=== PATIENT | male | born 1955 | race Caucasian/White ===

== ENCOUNTER 2016-04-12 20:07 | Inpatient (IN) | payer MEDICAID ==
[~2016-04-12] VITALS: Ht 172.7 cm; Wt 85.5 kg
[2016-04-12] MEDS ORDERED: ONDANSETRON 4 MG VIAL IV PRN (22:25)
[2016-04-12] MEDS ORDERED: SALINE FLUSH 10 ML FLUSH PRN (22:25)
[2016-04-12 22:42] VITALS: Ht 172.7 cm; Wt 85.5 kg
[2016-04-12] MEDS ORDERED: PHARMACY TO DOSE VANCOMYCIN IV SCH (22:45)
[2016-04-12] MEDS ORDERED: VANCOMYCIN 1,750 MG in SODIUM CHLORIDE 0.9% 500 ML IV ONE (23:00)
[2016-04-12 23:05] VITALS: BP_SYST 142; BP_SYST 150; RESP 22; TEMP 98.1
[2016-04-12] MEDS: METHYLPRED SOD SUCC 125 MG/2 ML VIAL IV SCH (23:42)
[2016-04-12] MEDS: SODIUM CHLORIDE 0.9% FLUSH BAG 500 ML IV SCH (23:46)
[2016-04-13] VITALS (7 sets, daily range): BP systolic 109–132; RESP 18–20; TEMP 97.3–97.8
[2016-04-13] MEDS: DUONEB INH SCH ×5 (00:24→23:30)
[2016-04-13] MEDS: NEB-BROVANA 15 MCG/2 ML INH SCH ×3 (00:24→20:12)
[2016-04-13] MEDS: SALINE FLUSH 10 ML FLUSH SCH ×2 (07:57→19:45)
[2016-04-13] MEDS: CEFEPIME 1,000 MG in SODIUM CHLORIDE 0.9% 100 ML IV SCH ×2 (07:57→19:45)
[2016-04-13] MEDS: METHYLPRED SOD SUCC 125 MG/2 ML VIAL IV SCH (07:58)
[2016-04-13] MEDS: ENOXAPARIN 40 MG/0.4 ML SYR SUBQ SCH (08:01)
[2016-04-13] MEDS: NEB-BUDESONIDE 0.5 MG INH SCH ×2 (11:15→20:12)
[2016-04-13] MEDS ORDERED: [UNRECOGNIZED DRUG - OTHER] PO PRN (11:30)
[2016-04-13] MEDS: NEB-NACL 3% 4 ML NEBU INH SCH ×3 (15:30→23:30)
[2016-04-13] MEDS: PANTOPRAZOLE 20 MG TAB PO SCH (16:25)
[2016-04-13] MEDS: LORATADINE 10 MG TAB PO SCH (16:25)
[2016-04-13] MEDS: AZITHROMYCIN 250 MG TAB PO SCH (16:26)
[2016-04-13] MEDS: SUCRALFATE 1 GM TAB PO SCH (16:26)
[2016-04-13] MEDS: VANCOMYCIN 1,500 MG in SODIUM CHLORIDE 0.9% 250 ML IV SCH (16:27)
[2016-04-13] MEDS: MONTELUKAST 10 MG TAB PO SCH (19:45)
[2016-04-13] MEDS: Atorvastatin 20 MG TAB PO SCH (19:45)
[2016-04-13] MEDS ORDERED: VANCOMYCIN 1,500 MG in SODIUM CHLORIDE 0.9% 250 ML IV SCH (22:00)
[2016-04-14] MEDS: VANCOMYCIN 1,500 MG in SODIUM CHLORIDE 0.9% 250 ML IV SCH ×2 (03:39→16:00)
[2016-04-14] MEDS: SODIUM CHLORIDE 0.9% FLUSH BAG 500 ML IV SCH (03:40)
[2016-04-14 04:20] VITALS: BP_SYST 122; RESP 20; TEMP 97.8
[2016-04-14] MEDS: PANTOPRAZOLE 20 MG TAB PO SCH (05:55)
[2016-04-14] MEDS: NEB-BUDESONIDE 0.5 MG INH SCH ×2 (06:42→18:26)
[2016-04-14] MEDS: NEB-NACL 3% 4 ML NEBU INH SCH ×5 (06:42→22:41)
[2016-04-14] MEDS: NEB-BROVANA 15 MCG/2 ML INH SCH ×2 (06:42→18:26)
[2016-04-14] MEDS: DUONEB INH SCH ×4 (06:42→22:42)
[2016-04-14] MEDS ORDERED: MDI-SPIRIVA 5 DOSES INH SCH (07:00)
[2016-04-14 07:24] VITALS: BP_SYST 115; RESP 20; TEMP 97.5
[2016-04-14] MEDS: CEFEPIME 1,000 MG in SODIUM CHLORIDE 0.9% 100 ML IV SCH ×2 (08:24→20:31)
[2016-04-14] MEDS: SALINE FLUSH 10 ML FLUSH SCH ×2 (08:24→20:31)
[2016-04-14] MEDS: LORATADINE 10 MG TAB PO SCH (08:25)
[2016-04-14] MEDS: ENOXAPARIN 40 MG/0.4 ML SYR SUBQ SCH (08:25)
[2016-04-14] MEDS: AZITHROMYCIN 250 MG TAB PO SCH (08:25)
[2016-04-14] MEDS: PREDNISONE 20 MG TAB PO SCH (08:25)
[2016-04-14] MEDS: SUCRALFATE 1 GM TAB PO SCH (11:33)
[2016-04-14 11:59] VITALS: BP_SYST 126; RESP 20; TEMP 98.3
[2016-04-14 16:05] VITALS: BP_SYST 119; RESP 20; TEMP 98.1
[2016-04-14 19:49] VITALS: BP_SYST 120; RESP 20; TEMP 97.7
[2016-04-14] MEDS: Atorvastatin 20 MG TAB PO SCH (20:31)
[2016-04-14] MEDS: MONTELUKAST 10 MG TAB PO SCH (20:31)
[2016-04-14 23:01] VITALS: BP_SYST 109; RESP 20; TEMP 97.7
[2016-04-15 04:04] VITALS: BP_SYST 104; RESP 20; TEMP 98.3
[2016-04-15] MEDS: VANCOMYCIN 1,500 MG in SODIUM CHLORIDE 0.9% 250 ML IV SCH ×2 (04:44→16:00)
[2016-04-15] MEDS: SODIUM CHLORIDE 0.9% FLUSH BAG 500 ML IV SCH (04:44)
[2016-04-15] MEDS: NEB-NACL 3% 4 ML NEBU INH SCH ×4 (06:26→22:55)
[2016-04-15] MEDS: DUONEB INH SCH ×4 (06:26→22:55)
[2016-04-15] MEDS: NEB-BROVANA 15 MCG/2 ML INH SCH ×2 (06:26→20:16)
[2016-04-15] MEDS: NEB-BUDESONIDE 0.5 MG INH SCH ×2 (06:27→20:16)
[2016-04-15 07:21] VITALS: BP_SYST 117; RESP 20; TEMP 97.8
[2016-04-15] MEDS: PANTOPRAZOLE 20 MG TAB PO SCH (07:36)
[2016-04-15] MEDS: SALINE FLUSH 10 ML FLUSH SCH ×2 (08:00→20:40)
[2016-04-15] MEDS: CEFEPIME 1,000 MG in SODIUM CHLORIDE 0.9% 100 ML IV SCH ×2 (08:04→20:40)
[2016-04-15] MEDS: LORATADINE 10 MG TAB PO SCH (08:05)
[2016-04-15] MEDS: PREDNISONE 20 MG TAB PO SCH (08:05)
[2016-04-15] MEDS: AZITHROMYCIN 250 MG TAB PO SCH (08:05)
[2016-04-15] MEDS: ENOXAPARIN 40 MG/0.4 ML SYR SUBQ SCH (08:06)
[2016-04-15] MEDS ORDERED: KCL 20 MEQ/15 ML UDC PO ONE (09:05)
[2016-04-15] MEDS: SUCRALFATE 1 GM TAB PO SCH (10:54)
[2016-04-15 12:00] VITALS: BP_SYST 130; RESP 20; TEMP 98
[2016-04-15 15:43] VITALS: BP_SYST 113; RESP 20; TEMP 98.3
[2016-04-15] MEDS ORDERED: VANCOMYCIN 1,750 MG in SODIUM CHLORIDE 0.9% 500 ML IV SCH (16:15)
[2016-04-15] MEDS ORDERED: VANCOMYCIN 2,000 MG in SODIUM CHLORIDE 0.9% 500 ML IV SCH (16:15)
[2016-04-15 19:12] VITALS: BP_SYST 107; RESP 20; TEMP 97.9
[2016-04-15] MEDS: Atorvastatin 20 MG TAB PO SCH (20:41)
[2016-04-15] MEDS: MONTELUKAST 10 MG TAB PO SCH (20:41)
[2016-04-15 23:12] VITALS: BP_SYST 141; RESP 20; TEMP 98
[2016-04-16] VITALS (8 sets, daily range): BP systolic 119–129; RESP 20; TEMP 97.6–98
[2016-04-16] MEDS: NEB-BUDESONIDE 0.5 MG INH SCH (06:21)
[2016-04-16] MEDS: DUONEB INH SCH (06:21)
[2016-04-16] MEDS: NEB-NACL 3% 4 ML NEBU INH SCH (06:21)
[2016-04-16] MEDS: NEB-BROVANA 15 MCG/2 ML INH SCH (06:21)
[2016-04-16] MEDS: PANTOPRAZOLE 20 MG TAB PO SCH (06:28)
[2016-04-16] MEDS: SODIUM CHLORIDE 0.9% FLUSH BAG 500 ML IV SCH (06:28)
[2016-04-16] MEDS ORDERED: MISSING DOSE XX ONE (08:30)
[2016-04-16] MEDS: SALINE FLUSH 10 ML FLUSH SCH (08:50)
[2016-04-16] MEDS: AZITHROMYCIN 250 MG TAB PO SCH (08:50)
[2016-04-16] MEDS: LORATADINE 10 MG TAB PO SCH (08:51)
[2016-04-16] MEDS: ENOXAPARIN 40 MG/0.4 ML SYR SUBQ SCH (08:51)
[2016-04-16] MEDS: CEFEPIME 1,000 MG in SODIUM CHLORIDE 0.9% 100 ML IV SCH (08:52)
[2016-04-16] MEDS ORDERED: PREDNISONE 20 MG TAB PO SCH (09:00)
[2016-04-16] MEDS: SUCRALFATE 1 GM TAB PO SCH (10:48)
== END 2016-04-16 12:55 | disposition home or self-care (01) | DRG 190 ==
LOC: ENPENDDIS 22:08 → 4NT 22:08
PROVIDERS: ADMIT Internal Medicine; ATTEND Internal Medicine
CPT/HCPCS: 36600; 71020; 71250; 80048; 80053; 80202; 82785; 82803; 85025; 86003; 86606; 86677; 86738; 87040; 87081; 87278; 87299; 87804; 94640; 94799; 99223; 99232; 99233; 99238